=== PATIENT | female | born 1960 | race Caucasian/White ===

== ENCOUNTER 2017-10-19 20:32 | Outpatient (CLI) | payer MEDICARE, MEDICAID | END 2017-10-19 20:33 | disposition critical access hospital (66) | LOC: EMS 20:32 | PROVIDERS: ATTEND Surgery | DX: S69.92XA Unspecified injury of left wrist, hand and finger(s), initial encounter (principal); W01.0XXA Fall on same level from slipping, tripping and stumbling without subsequent striking against object, initial encounter; Y93.H2 Activity, gardening and landscaping; Y92.007 Garden or yard of unspecified non-institutional (private) residence as the place of occurrence of the external cause | CPT/HCPCS: A0425; A0427 ==

== ENCOUNTER 2017-10-19 21:01 | Emergency (ER) | payer MEDICARE, MEDICAID ==
--- NOTE | 2017-10-19 21:02 | ED Physician Documentation ---
PD HPI UPPER EXT INJURY - Stated complaint Stated Complaint: GLF - WRIST PAIN, SWELLING AND DEFORMITY - History obtained from History obtained from: Patient, EMS - History of Present Illness Location: Left, Wrist Type of injury: Fall Timing - onset: Today Timing - duration: Hours Timing - details: Abrupt onset, Still present Improved by: Rest Worsened by: Moving, Palpating Associated symptoms: Swelling. No: Weakness, Numbness Similar symptoms before: Has not had sx before Recently seen: Not recently seen Review of Systems Skin: denies: Abrasion (s), Laceration (s) Musculoskeletal: denies: Neck pain, Back pain Neurologic: denies: Focal weakness, Numbness, Altered mental status, Headache, Head injury PD PAST MEDICAL HISTORY - Past Medical History Respiratory: Asthma GI: Crohn's disease Musculoskeletal: Fibromyalgia - Past Surgical History Past Surgical History: Yes Ortho: Arthroscopic surgery /DRAPERY MAKER: Breast implants, Hysterectomy, Mastectomy - Present Medications Home Medications: Ambulatory Orders Medication Instructions Recorded Confirmed Diazepam 10 mg PO BID PRN 09/25/12 06/12/14 Hydrocodone/Acetaminophen [Vicodin 1 each PO Q4-6H 09/25/12 06/12/14 Hp 10-300 mg Tablet] Methadone 10 mg PO Q4-6H 09/25/12 06/12/14 Sumatriptan [Imitrex] 20 mg NS PRN 09/25/12 06/12/14 Hydromorphone HCl [Dilaudid] 4 mg PO Q4H PRN #10 tablet 12/24/13 06/12/14 Sulfamethoxazole/Trimethoprim 1 each PO BID #19 tablet 06/12/14 [Bactrim Ds Tablet] cephALEXin [Keflex] 500 mg PO Q6H #40 capsule 06/12/14 - Allergies Allergies/Adverse Reactions: Allergies Allergy/AdvReac Type Severity Reaction Status Date / Time meperidine HCl * Allergy Rash Verified 10/19/17 21:09 [From Demerol] - Social History Does the pt smoke?: No Smoking Status: Never smoker Does the pt drink ETOH?: No Does the pt have substance abuse?: Yes PD ED PE NORMAL - Vitals Vital signs reviewed: Yes - General General: Alert and oriented X 3, Well developed/nourished - HEENT HEENT: Atraumatic - Neck Neck: Supple, no meningeal sign, No bony TTP, No adenopathy - Derm Derm: Normal color, Warm and dry - Extremities Extremities: Other (left wrist with swelling and tenderness dorsally. No gross bony deformity. Good color and pulses in wrist/fingers. ) - Neuro Neuro: Alert and oriented X 3, No motor deficit, No sensory deficit, Normal speech Results - Vitals Vitals: Oxygen O2 Source Room air - Rads (name of study) left wrist Radiology: Prelim report reviewed PD MEDICAL DECISION MAKING - ED course Complexity details: reviewed results (no fractures), considered differential, d/ w patient Departure - Departure Disposition: 01 Home, Self Care Clinical Impression: Fall from slip, trip, or stumble Qualifiers: Encounter type: initial encounter Qualified Code(s): W01.0XXA - Fall on same level from slipping, tripping and stumbling without subsequent striking against object, initial encounter Sprain of left wrist Qualifiers: Encounter type: initial encounter Qualified Code(s): S63.502A - Unspecified sprain of left wrist, initial encounter Condition: Stable Record reviewed to determine appropriate education?: Yes Instructions: ED Sprain Wrist Comments: There are no obvious fractures on your x-ray. It does look like your wrist would be sprained or bruised from the fall. Use a wrist splint if needed for immobilization and comfort. Ice and rest the wrist often tonight and tomorrow. Continue usual medications. Add Tylenol or ibuprofen if needed for pains. It should improve over the next several days to week or so. Discharge Date/Time: 10/19/17 22:15
[2017-10-19] MEDS ORDERED: KETOROLAC 60 MG/2 ML VIAL IVP STA (21:27)
--- NOTE | 2017-10-19 22:03 | XRAY Report ---
EXAM: LEFT WRIST RADIOGRAPHY EXAM DATE: 10/19/2017 09:39 PM. CLINICAL HISTORY: Fall onto left wrist. COMPARISON: None. TECHNIQUE: 3 views. FINDINGS: Bones: Normal. No fractures or bone lesions. Joints: Osteoarthritis. No evidence of dislocation. Soft Tissues: Soft tissue swelling. 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 No evidence of acute fracture. [facility] Referring Provider Line: [phone] SITE ID: [id number]
[2017-10-19 22:15] VITALS: BP 112/73
== END 2017-10-19 22:15 | disposition home or self-care (01) ==
LOC: EDUNIT# → ED 21:01
DX: Z79.891 Long term (current) use of opiate analgesic (principal); S63.502A Unspecified sprain of left wrist, initial encounter; W01.198A Fall on same level from slipping, tripping and stumbling with subsequent striking against other object, initial encounter
CPT/HCPCS: 96374; 99282; 99283

== ENCOUNTER 2020-04-08 15:32 | Outpatient (CLI) | payer MEDICARE, MEDICAID ==
[2020-04-08] MEDS ORDERED: IOVERSOL 320 50 ML VIAL ONE (16:01)
[2020-04-08] MEDS ORDERED: IOVERSOL 320 100 ML VIAL IVP ONE ×2 (16:01→17:25)
[2020-04-08] MEDS ORDERED: IOVERSOL 320 50 ML VIAL PO ONE (17:26)
--- NOTE | 2020-04-08 23:17 | CT Report ---
PROCEDURE: Abdomen/Pelvis W INDICATIONS: BREAST CA CONTRAST: IV CONTRAST: Optiray 320 ml: 100 PO CONTRAST: Optiray 320 ml50 TECHNIQUE: After the administration of contrast, 5 mm thick sections acquired from the diaphragms to the sym physis. 5 mm thick coronal and sagittal reformats were acquired. For radiation dose reduction, the following was used: automated exposure control, adjustment of mA and/or kV according to patient size . COMPARISON: None. FINDINGS: Image quality: Excellent. ABDOMEN: Lung bases: Lung bases are clear. Heart size is normal. Solid organs: Liver and spleen are normal in size and enhancement. Multiple foci of air density are seen in the gallbladder, likely isodense stones. Biliary system is non dilated. Pancreas enhances no rmally. No adrenal nodules. Kidneys demonstrate normal size and enhancement, without hydronephrosis . Peritoneum and bowel: Bowel loops demonstrate normal wall thickness and caliber. No free fluid or a ir. Nodes and vessels: No retroperitoneal or mesenteric adenopathy. The aorta has atherosclerotic calcifi cations with no aneurysmal dilatation. There is a small hiatal hernia. Miscellaneous: No ventral hernias. PELVIS: Genitourinary: Bladder wall thickness is normal. Miscellaneous: No inguinal hernias or adenopathy. Bones: No suspicious bony lesions. No vertebral body compression fractures. IMPRESSION: 1. No evidence of metastatic disease or adenopathy to the abdomen or pelvis. 2. Cholelithiasis. Reviewed by: Armando Narayan on 04/08/2020 11:16 PM PST Approved by: Armando Narayan on 04/08/2020 11:16 PM PST Station ID: [id number]
--- NOTE | 2020-04-08 23:24 | CT Report ---
PROCEDURE: CHEST W INDICATIONS: BREAST CA CONTRAST: IV CONTRAST: Optiray 320 ml: 100 PO CONTRAST: Optiray 320 ml50 TECHNIQUE: After the administration of intravenous contrast, 5 mm thick sections acquired from the pulmonary api ирина to the posterior costophrenic angles. 7 mm thick coronal MIP reformats were acquired. For radia tion dose reduction, the following was used: automated exposure control, adjustment of mA and/or kV according to patient size. COMPARISON: None. FINDINGS: Image quality: Excellent. Lungs and pleura: No acute air space opacities. No pleural effusions or pneumothorax. Central and peripheral airways are patent and normal in caliber. Mediastinum: Heart size is normal. No pericardial effusion. No mediastinal or hilar adenopathy by size criteria. Thoracic aorta and central pulmonary arteries are normal in size. Esophagus is dany l in caliber. No hiatal hernia. Bones and chest wall: No suspicious bony lesions. No vertebral body compression fractures. No axil nelly or supraclavicular adenopathy by size criteria. Thyroid gland is normal. Status post right mas tectomy. Abdomen: Visualized upper abdominal solid organs appear normal. Upper abdominal bowel loops are nor mal in caliber. IMPRESSION: No evidence of metastatic disease or adenopathy to the abdomen or pelvis. Reviewed by: Armando Narayan on 04/08/2020 11:23 PM PST Approved by: Armando Narayan on 04/08/2020 11:23 PM PST Station ID: [id number]
== END 2020-04-08 15:33 | disposition home or self-care (01) ==
LOC: DI 15:32
PROVIDERS: ATTEND Internal Medicine Hematology & Oncology
DX: R07.81 Pleurodynia (principal); Z85.3 Personal history of malignant neoplasm of breast
CPT/HCPCS: 71260; 74177; Q9967

== ENCOUNTER 2020-07-28 10:52 | Outpatient (CLI) | payer MEDICARE, MEDICAID ==
--- NOTE | 2020-07-29 10:10 | Ultrasound Report ---
LIMITED ULTRASOUND OF LEFT BREAST: 07/28/2020 CLINICAL: Palpable left breast lump. Comparison is made to exam dated: 07/28/2020 mammogram - [facility]. Ultrasound of the left breast lower inner quadrant was performed on the area of interest. Haro scale images of the real-time examination were reviewed. No discrete cystic or solid mass lesion identified in the area of palpable abnormality. IMPRESSION: NEGATIVE There is no sonographic evidence of malignancy. There is no abnormality seen in the left breast to correspond with the palpable abnormality in the lo wer inner quadrant, however, clinical followup is recommended. Return to annual mammogram screening schedule is recommended. This exam was interpreted at Station ID: [id number]. Electronically Signed By: Marcellus Centeno M.D. ddp/:07/28/2020 12:05:58 Ultrasound BI-RADS: 1 Negative BI-RADS CATEGORY: (1) - 1 RECOMMENDATION: (ANNUAL) - Recommend routine annual screening mammography. [id number] return to screening LATERALITY: (B)
--- NOTE | 2020-07-29 10:10 | Mammography Report ---
UNILATERAL LEFT DIGITAL DIAGNOSTIC MAMMOGRAM 3D/2D: 07/28/2020 CLINICAL: Palpable left breast lump. Baseline exam. No prior exams were available for comparison. There are scattered fibroglandular elements in left br east. No significant masses, calcifications, or other findings are seen in the breast. IMPRESSION: INCOMPLETE: NEEDS ADDITIONAL IMAGING EVALUATION There is no abnormality seen in the left breast to correspond with the palpable abnormality in the lo wer inner quadrant, however, ultrasound is recommended. Ultrasound will be performed immediately following the current exam. This exam was interpreted at Station ID: [id number]. NOTE: For mammograms, a report in lay terms will be sent to the patient. Approximately 15% of breast malignancies will not be visualized mammographically. In the management of a palpable breast mass, a negative mammogram must not discourage biopsy of a clinically suspicious lesion. Electronically Signed By: Marcellus Centeno M.D. ddp/:07/28/2020 11:46:22 ACR BI-RADS Category 0: Incomplete 3340F PARENCHYMAL PATTERN: (A) - The breast(s) demonstrate(s) scattered fibroglandular densities. BI-RADS CATEGORY: (0) - 0 Ultrasound [id number] Immediate follow-up LATERALITY: (B)
== END 2020-07-28 10:53 | disposition home or self-care (01) ==
LOC: DI 10:52
PROVIDERS: ATTEND Internal Medicine Hematology & Oncology
DX: R92.8 Other abnormal and inconclusive findings on diagnostic imaging of breast (principal); R07.81 Pleurodynia; M89.8X9 Other specified disorders of bone, unspecified site; Z85.3 Personal history of malignant neoplasm of breast

== ENCOUNTER 2020-09-30 12:59 | Outpatient (CLI) | payer MEDICARE, MEDICAID ==
[2020-09-30] MEDS ORDERED: SODIUM CHLORIDE 0.9% IV ONE (14:30)
[2020-09-30] MEDS ORDERED: SINCALIDE IV ONE (14:30)
--- NOTE | 2020-09-30 17:08 | Nuclear Medicine Report ---
PROCEDURE: Hepatobiliary HIDA w/ Rx INDICATIONS: GALLBLADDER DISEASE RADIOPHARMACEUTICAL: 5.4 mCi Tc-99m meprofenin i.v. and 1.32 ?g sincalide i.v. TECHNIQUE: Following intravenous administration of Tc-99m meprofenin, sequential anterior abdominal images were obtained through 60 minutes. To evaluate the contractile response of the gallbladder in response to Cholecystokinin (CCK), 1.32 microgram sincalide (0.02 ?g/kg) was administered by slow int ravenous infusion approximately 60 minutes after the administration of the radiopharmaceutical. Sequ ential imaging was continued for 30 minutes after the start of CCK infusion. Gallbladder ejection fr action was calculated. COMPARISON: CT abdomen and pelvis with contrast, 04/08/2020. FINDINGS: Biliary scan: There is normal tracer uptake and excretion by the liver. There is normal visualizati on of the intrahepatic ducts, common bile duct, and gallbladder. There is normal tracer transit into the duodenum. CCK stimulation: There is normal contractile response of the gallbladder to CCK infusion. The calcu lated gallbladder ejection fraction is 83%; normal values are above 35%. IMPRESSION: 1. Normal biliary imaging study. 2. Normal contractile response of gallbladder to CCK infusion.. Reviewed by: Fani Lopez MD on 09/30/2020 5:06 PM PDT Approved by: Fani Lopez MD on 09/30/2020 5:06 PM PDT Station ID: [id number]
== END 2020-09-30 13:00 | disposition home or self-care (01) ==
LOC: DI 12:59
PROVIDERS: ATTEND Surgery
DX: K82.9 Disease of gallbladder, unspecified (principal)
CPT/HCPCS: 78227; J7040

== ENCOUNTER 2021-03-20 17:04 | Outpatient (CLI) | payer MEDICARE, MEDICAID ==
[2021-03-20 19:50] LABS: BILIRUBIN,URINE NEGATIVE (NEGATIVE); GLUCOSE, URINE (UA) NEGATIVE (NEGATIVE); KETONES,URINE (UA) NEGATIVE (NEGATIVE); LEUKOCYTE ESTERASE, URINE NEGATIVE (NEGATIVE); NITRITE,URINE NEGATIVE (NEGATIVE); OCCULT BLOOD,URINE NEGATIVE (NEGATIVE); PH,URINE 5.5 PH (5.0-7.5); PROTEIN,URINE NEGATIVE (NEGATIVE); UROBILINOGEN,URINE 0.2 (NORMAL) E.U./dL (NORMAL)
[2021-03-20 19:52] LABS: CLARITY,URINE CLEAR (CLEAR)
[2021-03-30 10:09] LABS: MUDS CUTOFF CONCENTRATIONS CUTOFF CONC BELOW:
[2021-03-30 10:16] LABS: AMPHETAMINE SCREEN,URINE NEGATIVE (NEGATIVE); BARBITURATE SCREEN,UR NEGATIVE (NEGATIVE); BENZODIAZEPINES SCREEN, URINE POSITIVE (NEGATIVE); COCAINE SCREEN URINE NEGATIVE (NEGATIVE); METHADONE SCREEN, URINE POSITIVE (NEGATIVE); METHAMPHETAMINES SCREEN, URINE NEGATIVE (NEGATIVE); OPIATE SCREEN, URINE POSITIVE (NEGATIVE); OXYCODONE SCREEN, URINE POSITIVE (NEGATIVE); PROPOXYPHENE SCREEN, URINE NEGATIVE (NEGATIVE); THC CANNABINOID SCREEN, URINE POSITIVE (NEGATIVE); TRICYCLIC ANTIDEPRESSANT,URINE NEGATIVE (NEGATIVE)
== END 2021-03-20 17:05 | disposition home or self-care (01) ==
LOC: LAB.S 17:04
PROVIDERS: ATTEND Physician Assistant
DX: M79.7 Fibromyalgia (principal); G58.0 Intercostal neuropathy; Z79.891 Long term (current) use of opiate analgesic; M54.81 Occipital neuralgia; G89.29 Other chronic pain; G54.8 Other nerve root and plexus disorders
CPT/HCPCS: 80306; 81001; 81003

== ENCOUNTER 2021-08-29 15:19 | Outpatient (CLI) | payer MEDICARE, MEDICAID ==
[2021-08-29 15:28] LABS: MUDS CUTOFF CONCENTRATIONS CUTOFF CONC BELOW:
[2021-08-29 20:41] LABS: THC CANNABINOID SCREEN, URINE POSITIVE (NEGATIVE)
[2021-08-29 20:42] LABS: AMPHETAMINE SCREEN,URINE NEGATIVE (NEGATIVE); BARBITURATE SCREEN,UR NEGATIVE (NEGATIVE); BENZODIAZEPINES SCREEN, URINE POSITIVE (NEGATIVE); COCAINE SCREEN URINE NEGATIVE (NEGATIVE); METHADONE SCREEN, URINE POSITIVE (NEGATIVE); METHAMPHETAMINES SCREEN, URINE NEGATIVE (NEGATIVE); OPIATE SCREEN, URINE POSITIVE (NEGATIVE); OXYCODONE SCREEN, URINE POSITIVE (NEGATIVE); PROPOXYPHENE SCREEN, URINE NEGATIVE (NEGATIVE); TRICYCLIC ANTIDEPRESSANT,URINE NEGATIVE (NEGATIVE)
== END 2021-08-29 15:20 | disposition home or self-care (01) ==
LOC: LAB.S 15:19
DX: M79.7 Fibromyalgia (principal); G58.0 Intercostal neuropathy; Z79.891 Long term (current) use of opiate analgesic; M54.81 Occipital neuralgia; G89.29 Other chronic pain; G54.8 Other nerve root and plexus disorders
CPT/HCPCS: 80306

== ENCOUNTER 2022-02-15 14:01 | Outpatient (CLI) | payer MEDICARE, MEDICAID ==
[2022-02-15 14:18] LABS: MUDS CUTOFF CONCENTRATIONS CUTOFF CONC BELOW:
[2022-02-15 20:25] LABS: COCAINE SCREEN URINE NEGATIVE (NEGATIVE); METHAMPHETAMINES SCREEN, URINE NEGATIVE (NEGATIVE); THC CANNABINOID SCREEN, URINE POSITIVE (NEGATIVE)
[2022-02-15 20:26] LABS: AMPHETAMINE SCREEN,URINE NEGATIVE (NEGATIVE); BARBITURATE SCREEN,UR NEGATIVE (NEGATIVE); BENZODIAZEPINES SCREEN, URINE POSITIVE (NEGATIVE); METHADONE SCREEN, URINE POSITIVE (NEGATIVE); OPIATE SCREEN, URINE POSITIVE (NEGATIVE); OXYCODONE SCREEN, URINE POSITIVE (NEGATIVE); PROPOXYPHENE SCREEN, URINE NEGATIVE (NEGATIVE); TRICYCLIC ANTIDEPRESSANT,URINE NEGATIVE (NEGATIVE)
== END 2022-02-15 14:02 | disposition home or self-care (01) ==
LOC: LAB.S 14:01
PROVIDERS: ATTEND Nurse Practitioner Family
DX: M79.7 Fibromyalgia (principal); G58.0 Intercostal neuropathy; Z79.891 Long term (current) use of opiate analgesic; M54.81 Occipital neuralgia; G89.29 Other chronic pain; G54.8 Other nerve root and plexus disorders
CPT/HCPCS: 80306; 81599; G0480; 80361

== ENCOUNTER 2023-10-09 14:26 | Outpatient (CLI) | payer MEDICARE, MEDICAID ==
[2023-10-09 20:35] LABS: AMPHETAMINE SCREEN,URINE NEGATIVE (NEGATIVE); BENZODIAZEPINES SCREEN, URINE NEGATIVE (NEGATIVE); COCAINE SCREEN URINE NEGATIVE (NEGATIVE); METHAMPHETAMINES SCREEN, URINE NEGATIVE (NEGATIVE); OPIATE SCREEN, URINE POSITIVE (NEGATIVE); THC CANNABINOID SCREEN, URINE POSITIVE (NEGATIVE)
[2023-10-09 20:36] LABS: BARBITURATE SCREEN,UR NEGATIVE (NEGATIVE); BUPRENORPHINE SCREEN, URINE NEGATIVE (NEGATIVE); METHADONE SCREEN, URINE POSITIVE (NEGATIVE); OXYCODONE SCREEN, URINE POSITIVE (NEGATIVE); TRICYCLIC ANTIDEPRESSANT,URINE NEGATIVE (NEGATIVE)
== END 2023-10-09 14:27 | disposition home or self-care (01) ==
LOC: LAB.S 14:26
PROVIDERS: ATTEND Nurse Practitioner Family
DX: M79.7 Fibromyalgia (principal); G58.0 Intercostal neuropathy; Z79.891 Long term (current) use of opiate analgesic; M54.81 Occipital neuralgia; G89.29 Other chronic pain; G54.8 Other nerve root and plexus disorders
CPT/HCPCS: 80306; 81599